=== PATIENT | male | born 1995 | race Caucasian/White ===

== ENCOUNTER 2018-01-14 15:10 | Emergency (ER) | payer BC, OTHER ==
[~2018-01-14] VITALS: Ht 167.6 cm; Wt 75.0 kg
[~2018-01-14 15:10] MED LIST: ADAP45GE TP
[2018-01-14 15:20] VITALS: BP 136/92
[2018-01-14] MEDS ORDERED: ONDA4TAB9 SL (15:29)
[2018-01-14] MEDS ORDERED: ondansetron 4mg rapidly disintigrating tab PO ONE (15:30)
[2018-01-14] MEDS ORDERED: magnesium oxide 400mg tablet PO ONE (15:30)
== END 2018-01-14 16:28 | disposition home or self-care (01) ==
LOC: ER 15:11
DX: K29.20 Alcoholic gastritis without bleeding (principal); R04.2 Hemoptysis; F10.10 Alcohol abuse, uncomplicated; Z88.8 Allergy status to other drugs, medicaments and biological substances; Z79.899 Other long term (current) drug therapy
CPT/HCPCS: 82948; 99283